=== PATIENT | female | born 1980 | race Caucasian/White ===

== ENCOUNTER 2024-10-30 23:45 | Emergency (ER) | payer BC, SELFPAY ==
[2024-10-30 23:53] VITALS: BP 181/130; PULSE 130; RESP 20; TEMP 36.9; O2SAT 97; BMI 27.1
[2024-10-30 23:57] VITALS: BP 161/114
--- NOTE | 2024-10-31 00:14 | CRLHL7_ITS ---
For Patients: As a result of the Cures Act, medical imaging exams and procedure reports are released immediately into your electronic medical record. You may view this report before your referring provider. If you have questions, please contact your health care provider. INDICATION: Palpitations. TECHNIQUE: Chest 2 views. COMPARISON: None. FINDINGS: Cardiovascular and mediastinum: Heart size and vasculature are normal in caliber and appearance. Lungs and pleural spaces: Lungs are clear. No sign of infiltrate or mass. No sign of pleural effusion. No pneumothorax. Bones and soft tissues: No significant findings. IMPRESSION: No acute or significant findings. Dictated by Song Stein MD @ 10/31/2024 1:12:22 AM (Electronically Signed)
--- NOTE | 2024-10-31 00:14 | ED_ITS ---
HPI - General Adult General Chief complaint: Arrhythmia/Palpitations Stated complaint: Elevated heartrate, tremors Time Seen by Provider: 10/30/24 23:58 Source: patient Mode of arrival: ambulatory Limitations: no limitations History of Present Illness HPI narrative: 44-year-old female with no prior cardiac history and no family history of premature coronary artery disease or arrhythmias presents to the emergency department for evaluation of sensation of rapid in fluttering heart since about 11:00 p.m. which is about 1 hour prior to arrival. No prior stress test, EKG or Holter monitor studies. No history of DVT or PE. No shortness of breath, neurological changes. She does have some achiness in her left shoulder but thinks it is unrelated, did not started the same time. No dizziness, no syncope. No recent severe illness. No injury or trauma. Did not measure her heart rate, does not have a fitness tracker watch. Still symptomatic at the time of ED arrival. Reports her past medical history is relatively benign. No major long-term health problems. She was recently seen by her woman's health provider, blood pressure was noted to be somewhat elevated at that visit. It sounds as though her estrogen containing OCP was discontinued and she is scheduled to start a new 1 tomorrow. I suspect this is probably progesterone only. Does use tobacco products, vape pen. No illicit drugs. No long-term medications besides of control and she does use an [id number]-[id number] antacid at times. No allergies. ROS is notable for the palpitation feeling, otherwise denies times 12 systems. Related Data Previous Rx's ?Medication ?Instructions ?Recorded norethindrone (contraceptive) 0.35 0.35 mg PO QDAY #84 tabs 10/04/ mg tablet (Leanna) Allergies Allergy/AdvReac Type Severity Reaction Status Date / Time No Known Drug Allergies Allergy Verified 10/30/24 23:51 [facility] Medical History History of migraine ?Z86.69 - Personal history of other diseases of the nervous system and sense organs (ICD-10) History of basal cell carcinoma (BCC) (02/2020) ?Z85.828 - Personal history of other malignant neoplasm of skin (ICD-10) Surgical History History of Mohs micrographic surgery for skin cancer (02/2020) ?Z85.828 - Personal history of other malignant neoplasm of skin (ICD-10) ?Z98.890 - Other specified postprocedural states (ICD-10) History of tonsillectomy ?Z90.89 - Acquired absence of other organs (ICD-10) History of colposcopy (2001) ?Z98.890 - Other specified postprocedural states (ICD-10) Family History Aunt Breast cancer Other Family history of melanoma Social History Narrative: Banker. . Does not exercise regularly. Nonsmoker. 3-5 alcoholic beverages per week. No concerns with safety or abuse Non-prescribed substance use: denies use Exam Const: Vital Signs, click to edit/add: Vital Signs - 24 hr 10/30/24 23:53 10/30/24 23:57 10/31/24 00:48 Temperature 98.4 F Pulse Rate [Pulse Oximeter] 130 H 81 Respiratory Rate 20 16 Blood Pressure [Ri ght Upper Arm] 181/130 H 161/114 H 155/99 H Pulse Oximetry 97 100 Oxygen Delivery Me thod Room Air Room Air Documenting provider has reviewed patient's vital signs: yes Common normals: no apparent distress General appearance: comfortable and well kempt Other: Appears well-nourished, well-hydrated, not intoxicated HENMT: Common normals: normocephalic and moist oral mucous membranes Head and scalp: normocephalic Mouth: oral and palatal mucosa normal Throat: posterior oropharynx normal Eye: Common normals: conjunctivae normal General eye: normal appearance of both eyes Conjunctiva: conjunctiva(e) normal Neck & C-Spine: Common normals: full ROM and no lymphadenopathy General: normal visual inspection Resp: Common normals: normal respiratory effort, no use of accessory muscles and clear to auscultation bilaterally Effort & inspection: able to speak in complete sentences Auscultation: clear to auscultation bilaterally Cardio: Common normals: regular rate, regular rhythm, S1 normal heart sound, S2 normal heart sound and no murmurs Rate: regular rate Rhythm: regular rhythm Heart sounds: S1 normal and S2 normal Other: Heart rate under 100 at the time of my auscultation GI: Common normals: Normal to inspection, nondistended, normoactive bowel sounds present, soft to palpation, non-tender, no hepatosplenomegaly and no masses Palpation: soft and no hepatosplenomegaly Extremity: Common normals: normal to inspection, normal capillary refill and no pedal edema Neuro: Speech: speech normal Motor exam: strength 5/5 throughout Psych: Appearance: well kempt Attitude: engaged Activity/motor behavior: appropriate eye contact Insight: insight good Judgement: judgment good Skin: Common normals: no rashes or lesions noted General skin exam: no rashes or lesions noted Course Course ED Course: 44-year-old female presenting with sensation of palpitations. Blood pressures have been slightly recently elevated, outpatient visit. On specific questioning, it sounds like her identical twin does have a history of PVCs in the past as well. EKG obtained in triage, heart rate was 106 of the time and was showing PVCs. Patient will be placed on a feather curling machine operator, typical cardiac labs including TSH. Counseled that at this time were not seeing any dangerous abnormal rhythm, just a very common 1 the typically does not lead to more dangerous arrhythmias. Will obtain chest x-ray also. If no dangerous findings, she would be a good candidate for a trial of propranolol as it would lower her blood pressure and also reduce PVCs without significant side effects. Atenolol would be a good 2nd choice. Patient counseled that it is EMR down time tonight and results will be delayed as a result. Reevaluation(s) Reevaluation #1: Downtime documentation: Meagan Salas X-ray interpreted per my interpretation:? Normal x-ray.? No cardiomegaly, infiltrate, effusions. FINDINGS: Cardiovascular and mediastinum: Heart size and vasculature are normal in caliber and appearance. Lungs and pleural spaces: Lungs are clear. No sign of infiltrate or mass. No sign of pleural effusion. No pneumothorax. Bones and soft tissues: No significant findings. IMPRESSION: No acute or significant findings. ? Labs showing no significant abnormalities, pasted into EMR.? Reviewed. Assessment:? Palpitations, secondary to premature ventricular contractions. Plan: ?Counseled patient on findings.? We discussed PVCs.? Handout given.? Counseled patient that alcohol is a likely trigger hand cutting down on it would reduce her chance of subsequent flares but the condition itself is not particularly dangerous.? Her blood pressure is mildly elevated.? Repeat labs are showing that her blood pressure is 135/80 and her heart rate has consistently been in the 70s at rest for over an hour now.? We do observe rare PVCs, she is feeling better, no treatment was given in the ED. Discussed that if her blood pressure is still elevated at her follow-up, I would recommend that her provider consider starting extended-release propranolol or atenolol as this is often better for PVCs.? This would also lower her blood pressure into a safe range if needed.? Switching to the new control pill may help as well.? Two weeks time would be sufficient to tell if this is a factor.? She will invest in ambulatory blood pressure cuff monitor and monitor her blood pressure twice daily at rest and bring this to her follow-up appointment in 2 weeks.? Her blood pressure will be rechecked at that visit.? If she has had any further symptoms, I would recommend a Holter monitor and echo.? Alarm symptoms reviewed that would warrant ED presentation.? Written instructions provided.? All questions answered. Vital Signs Vital signs: Initial Vital Signs Temperature 98.4 F 10/30/24 23:53 Temperature Source Temporal Artery Scan 10/30/24 23:53 Pulse Rate 130 H 10/30/24 23:53 Respiratory Rate 20 10/30/24 23:53 Blood Pressure 181/130 H 10/30/24 23:53 Blood Pressure Mean 147 H 10/30/24 23:53 Pulse Oximetry 97 10/30/24 23:53 Oxygen Delivery Method Room Air 10/30/24 23:53 Vital Signs Temperature 98.4 F 10/30/24 23:53 Pulse Rate 130 H 10/30/24 23:53 Respiratory Rate 20 10/30/24 23:53 Blood Pressure 181/130 H 10/30/24 23:53 Pulse Oximetry 97 10/30/24 23:53 Oxygen Delivery Method Room Air 10/30/24 23:53 Temperature 98.4 F 10/30/24 23:53 Pulse Rate 81 10/31/24 00:48 Respiratory Rate 16 10/31/24 00:48 Blood Pressure 155/99 H 10/31/24 00:48 Pulse Oximetry 100 10/31/24 00:48 Oxygen Delivery Method Room Air 10/31/24 00:48 Medical Decision Making Lab Data Lab results reviewed: Yes I reviewed the patient's lab results Lab results narrative: All reassuring, as expected Labs: Lab Results 10/31/24 Range/Units 00:05 WBC 10.83 (4.50-11.00) K/uL RBC 4.82 (4.00-5.20) m/uL Hgb 14.7 (12.0-16.0) gm/dL Hct 43.9 (33.0-51.0) % MCV 91 (80-100) fL MCH 31 (26-34) pg MCHC 34 (32-36) gm/dL RDW Coeff of Hayde 11.7 (11.5-15.5) % Plt Count 336 (140-440) K/uL Neut % (Auto) 45.9 (42.0-72.0) % Lymph % (Auto) 44.5 H (20-44) % Valley % (Auto) 6.9 (0.0-11.0) % Eos % (Auto) 2.2 (0.0-7.0) % Baso % (Auto) 0.3 (0.0-3.0) % Neut # (Auto) 4.97 (1.7-7.0) K/uL Lymph # (Auto) 4.80 H (0.90-2.90) K/uL Valley # (Auto) 0.70 (0.00-0.90) K/UL Eos # (Auto) 0.24 (0.00-0.50) K/uL Baso # (Auto) 0.03 (0.00-0.30) K/uL Abs Immat Gran (auto) 0.02 (0.00-0.30) K/uL Imm/Tot Granulo (auto) 0.2 % Sodium 136 (135-149) mmol/L Potassium 3.4 L (3.6-5.1) mmol/L Chloride 102 (96-114) mmol/L Carbon Dioxide 25 (20-32) mmol/L Anion Gap 9 (7-15) mEq/L BUN 8 (5-24) mg/dL Creatinine 0.8 (0.5-1.5) mg/dL Estimated Creat Clear 82.26 Estimated GFR 92 ml/min Glucose 123 H (60-115) mg/dL Calcium 9.5 (8.4-10.6) mg/dL Magnesium 2.0 (1.5-2.6) mg/dL Troponin I < 0.01 (0.01-0.04) ng/mL NT-Pro-B Natriuret Pep 98 (See Note) pg/mL TSH 3.670 (0.270-4.200) uIU/mL Ethyl Alcohol < 0.01 (0.01-0.03) % ECG Data Attestation: I personally reviewed and interpreted this ECG as follows: Prior ECG tracings: not available for review Interpretation: Sinus rhythm with a rate of 106 at the time of the EKG. Normal intervals and axis. No significant ST or T-wave abnormalities. There are several PVCs present. Discharge Plan Discharge Clinical Impression: Contraction, premature ventricular Patient Disposition: Home w/ Parent or Adult Condition: Improved Instructions: Premature Ventricular Contractions (ED) Additional Instructions: Patient instructions on Meagan Salas I apologize for the less professional looking discharge instructions, as discussed, we are on computer downtime tonight, we do this once monthly for required patches and updates. Your labs and x-ray look great.? The feather curling machine operator has only shown the PVCs, also known as premature ventricular contractions that we discussed.? This is a very benign condition that also happens to be very common.? It is typically not a sign of underlying structural heart disease.? These episodes tend to be very genetic but can be brought on by less sleep than usual, alcohol, or more caffeine.? Reduction of alcohol seems to be the most beneficial modification for people. Your blood pressure is a little elevated today.? I would recommend that you make a follow-up appointment with her primary care provider in about 2 weeks to have this rechecked.? There are medications that can treat elevated blood pressure that are also very beneficial for preventing these PVCs.? My 1st recommendation will be propranolol, atenolol as a second-line agent.? I would recommend that your provider also order a Holter monitor which is aware of all heart monitor that can look for different types of abnormal heartbeats in your every day life, it is more accurate than the couple of hours of monitoring that I can do in the emergency department.? If they are still concerns, an echo which is an ultrasound of the heart can be ordered as well.? I would recommend that you invest in a home blood pressure cuff so that you can monitor your blood pressure and pulse.? Heart rate over 160 at rest would be concerning and would warrant emergency room evaluation.? There is not a particular blood pressure that has us concerned from an emergency basis unless there are neurological changes indicative of a stroke accompanying elevated blood pressure.? I have enclosed some basic information about the condition for you to read about.? I do recommend that you make this switch on the control pill as your provider has suggested as well.? Please make the follow-up appointment as scheduled.? I cannot do this for you during computer downtime. Prescriptions: No Action norethindrone (contraceptive) [Leanna] 0.35 mg tablet 0.35 mg PO QDAY Qty: 84 3RF Follow Up/Referrals: Provider,Not a Local [Primary Care Provider, Family Practice]
[2024-10-31 00:24] LABS: Basophils Absolute Auto 0.03 K/uL (0.00-0.30); Basophils Percent Auto 0.3 % (0.0-3.0); Eosinophils Absolute Auto 0.24 K/uL (0.00-0.50); Eosinophils Percent Auto 2.2 % (0.0-7.0); Hematocrit 43.9 % (33.0-51.0); Hemoglobin* 14.7 gm/dL (12.0-16.0); Immature Granulocytes Abs Auto 0.02 K/uL (0.00-0.30); Immature Granulocytes Pct Auto 0.2 %; Lymphocytes Percent Auto 44.5 % (20-44); Mean Corpuscular HGB Conc 34 gm/dL (32-36); Mean Corpuscular Hemoglobin 31 pg (26-34); Mean Corpuscular Volume 91 fL (80-100); Monocytes Percent Auto 6.9 % (0.0-11.0); Neutrophils Absolute Auto 4.97 K/uL (1.7-7.0); Neutrophils Percent Auto 45.9 % (42.0-72.0); Platelet Count* 336 K/uL (140-440); RDW Coefficient of Variation % 11.7 % (11.5-15.5); Red Blood Count 4.82 m/uL (4.00-5.20); White Blood Count* 10.83 K/uL (4.50-11.00)
[2024-10-31 00:28] LABS: Slide Review Reflex No
[2024-10-31 00:33] LABS: Chloride* 102 mmol/L (96-114)
[2024-10-31 00:34] LABS: Potassium* 3.4 mmol/L (3.6-5.1); Sodium* 136 mmol/L (135-149)
[2024-10-31 00:36] LABS: Blood Urea Nitrogen* 8 mg/dL (5-24); Creatinine* 0.8 mg/dL (0.5-1.5); Est. Creatinine Clearance* 82.26; Estimated Glomerular Filt Rate 92 ml/min
[2024-10-31 00:37] LABS: Anion Gap 9 mEq/L (7-15); Calcium* 9.5 mg/dL (8.4-10.6); Carbon Dioxide* 25 mmol/L (20-32); Glucose* 123 mg/dL (60-115)
[2024-10-31 00:48] VITALS: BP 155/99; PULSE 81; RESP 16; O2SAT 100
[2024-10-31 00:49] LABS: Ethanol* < 0.01 % (0.01-0.03); NT Pro B Type NatriureticPept* 98 pg/mL (See Note)
[2024-10-31 00:53] LABS: Troponin I* < 0.01 ng/mL (0.01-0.04)
== END 2024-10-31 02:00 | disposition home or self-care (01) ==
PROVIDERS: Emergency Provider Family Medicine
DX: I49.3 Ventricular premature depolarization (principal)
CPT/HCPCS: 36415; 71046; 80048; 82077; 83735; 83880; 84443; 84484; 85025; 93005; 99284

== ENCOUNTER 2024-11-30 07:58 | Outpatient (CLI) | payer BC, SELFPAY ==
--- NOTE | 2024-11-30 08:15 | CRLHL7_ITS ---
For Patients: As a result of the Century Cures Act, medical imaging exams and procedure reports are released immediately into your electronic medical record. You may view this report before your referring provider. If you have questions, please contact your health care provider. BILATERAL DIGITAL SCREENING MAMMOGRAM WITH COMPUTER-AIDED DETECTION AND TOMOSYNTHESIS CLINICAL HISTORY: : Routine screening exam. COMPARISON: None TECHNIQUE: Digital mammogram in CC and MLO projections including computer-aided detection (CAD). Tomosynthesis was used in this interpretation. BREAST COMPOSITION: There are scattered areas of fibroglandular density. FINDINGS: RIGHT Breast: No suspicious findings LEFT Breast: Focal asymmetric density in the lateral breast at 3 o`clock 7 cm from the nipple. IMPRESSION: LEFT breast asymmetry/mass. RECOMMENDATIONS: Additional mammographic views of the LEFT breast including 3D spot-compression CC/MLO. LEFT breast ultrasound may also be required. The [facility] will contact the patient. A lay language report of this examination will be provided to the patient. BI-RADS Category 0: Incomplete: Need Additional Imaging Evaluation Dictated by Seng Mahmood MD @ 12/01/2024 9:27:10 AM Dictated by: Seng Mahmood MD @ 12/01/2024 09:27:17 (Electronically Signed)
== END 2024-11-30 07:59 | disposition home or self-care (01) ==
LOC: MAMMO 07:58
PROVIDERS: PCP Nurse Practitioner Family; Visit Provider Physician Assistant
DX: Z12.31 Encounter for screening mammogram for malignant neoplasm of breast (principal); N63.20 Unspecified lump in the left breast, unspecified quadrant
CPT/HCPCS: 77063; 77067

== ENCOUNTER 2024-12-08 07:33 | Outpatient (CLI) | payer BC, SELFPAY ==
--- NOTE | 2024-12-08 07:45 | CRLHL7_ITS ---
For Patients: As a result of the Century Cures Act, medical imaging exams and procedure reports are released immediately into your electronic medical record. You may view this report before your referring provider. If you have questions, please contact your health care provider. DIGITAL DIAGNOSTIC LEFT MAMMOGRAM USING TOMOSYNTHESIS LEFT BREAST ULTRASOUND CLINICAL HISTORY: LEFT breast mass/asymmetry. COMPARISON: 11/30/2024. TECHNIQUE: Digital LEFT mammogram in two projections. Tomosynthesis was used in this interpretation. Real-time ultrasound imaging of LEFT breast with imaging documentation. BREAST COMPOSITION: There are scattered areas of fibroglandular density. FINDINGS: 3D spot compression CC/MLO LEFT breast mammogram images submitted. Persistent nodular density is present within the lateral LEFT breast without architectural distortion. No suspicious calcifications. Targeted LEFT breast ultrasound performed. At 3 o`clock 6 cm from the nipple there is a solid hyperechoic structure which measures 6 x 4 x 5 millimeters and located at anterior depth. IMPRESSION: Indeterminate hyperechoic nodular density LEFT breast 3 o`clock 6 cm from the nipple measuring 6 x 4 x 5 millimeters. RECOMMENDATIONS: Ultrasound-guided core needle biopsy recommended. A lay language report of this examination will be provided to the patient. BI-RADS Category 4: Suspicious Dictated by Seng Mahmood MD @ 12/08/2024 10:33:45 AM jj/Dictated by: Seng Mahmood MD @ 12/08/2024 10:33:00 AM (Electronically Signed)
--- NOTE | 2024-12-08 08:15 | CRLHL7_ITS ---
For Patients: As a result of the Cures Act, medical imaging exams and procedure reports are released immediately into your electronic medical record. You may view this report before your referring provider. If you have questions, please contact your health care provider. SEE DIGITAL DIAGNOSTIC LEFT MAMMOGRAM PERFORMED SAME DAY CRL:[email or web address] [email or web address]/Dictated by: Seng Mahmood MD @ 12/08/2024 10:33:00 AM (Electronically Signed)
== END 2024-12-08 07:34 | disposition home or self-care (01) ==
LOC: MAMMO 07:33
PROVIDERS: PCP Nurse Practitioner Family; Visit Provider Nurse Practitioner Family
DX: N63.20 Unspecified lump in the left breast, unspecified quadrant (principal); R92.8 Other abnormal and inconclusive findings on diagnostic imaging of breast
CPT/HCPCS: 76642; 77065; G0279

== ENCOUNTER 2025-01-03 10:57 | Outpatient (CLI) | payer BC, SELFPAY ==
--- NOTE | 2025-01-03 11:15 | CRLHL7_ITS ---
For Patients: As a result of the Century Cures Act, medical imaging exams and procedure reports are released immediately into your electronic medical record. You may view this report before your referring provider. If you have questions, please contact your health care provider. ULTRASOUND-GUIDED BREAST BIOPSY AND POST-BIOPSY DIGITAL MAMMOGRAM FOR BIOPSY MARKER PLACEMENT CLINICAL HISTORY: Indeterminate nodule. COMPARISON STUDIES: 12/08/2024. TECHNIQUE: Real-time ultrasound with image documentation was used for targeting the breast lesion. Core biopsy specimens were obtained using an automated gun with a 16-gauge biopsy needle. Post-biopsy CC and ML digital mammograms were obtained to document position of the biopsy marker. CONSENT and TIME OUT: The procedure, risks, and alternatives were explained to the patient and a consent was signed. [place] Protocol was followed including pre-procedure verification that relevant information/documentation was available, reviewed and properly matched to the patient; consent accurate and complete; and equipment and supplies available. Time Out was conducted just prior to starting procedure to verify the four required elements: patient identity, correct side/site marked (if applicable), procedure, relevant images/results properly labeled and displayed (if applicable). PROCEDURE: The patient was positioned supine on the ultrasound table. The breast was prepped with ChloraPrep. 8 cc of 1 percent lidocaine used for local anesthesia. Core samples were obtained. A sterile metal biopsy clip was placed percutaneously to joel the lesion position within the breast. The specimens were placed in 10% formalin and sent to the pathology department. Pressure was held on the biopsy site until all bleeding subsided. The skin incision was closed with Steri-Strips. An ice pack was positioned over the biopsy site. Post-biopsy instructions were reviewed with the patient, and a written copy was given to her. LATERALITY: LEFT breast. LESION: Hypoechoic lesion measuring 6 x 4 x 5 millimeters at 3 o`clock 6 cm from the nipple. SUSPICION FOR MALIGNANCY: Low. NUMBER OF SAMPLES: 5. BIOPSY CLIP SHAPE: Oval. PROXIMITY OF CLIP TO TARGET: Within the lesion. IMPRESSION: Ultrasound-guided breast biopsy. When the pathology report is available, an addendum to this report will be made. ACR not applicable Dictated by Seng Mahmood MD @ 01/03/2025 12:09:49 PM jj/Dictated by: Seng Mahmood MD @ 01/03/2025 12:09:00 PM (Electronically Signed)
--- NOTE | 2025-01-03 12:00 | CRLHL7_ITS ---
For Patients: As a result of the Century Cures Act, medical imaging exams and procedure reports are released immediately into your electronic medical record. You may view this report before your referring provider. If you have questions, please contact your health care provider. SEE ULTRASOUND-GUIDED LEFT BREAST BIOPSY PERFORMED SAME DAY CRL:[email or web address] [email or web address]/Dictated by: Seng Mahmood MD @ 01/03/2025 12:06:00 PM (Electronically Signed)
== END 2025-01-03 10:58 | disposition home or self-care (01) ==
LOC: US 10:57
PROVIDERS: PCP Nurse Practitioner Family; Visit Provider Nurse Practitioner Family
DX: N63.20 Unspecified lump in the left breast, unspecified quadrant (principal); R92.8 Other abnormal and inconclusive findings on diagnostic imaging of breast
CPT/HCPCS: 19083; 77065; A4648; A4649